=== PATIENT | male | born 1990 | race Caucasian/White ===

== ENCOUNTER 2020-04-22 11:26 | Outpatient (REF) | payer MEDICAID, SELFPAY ==
[2020-04-22 13:31] LABS: MANUAL DIFF FLAG NO
[2020-04-22 13:35] LABS: Basophils Percent Auto 0.5 % (0-2); Eosinophils Absolute Auto 0.3 X10*3/uL (0.0-0.4); Eosinophils Percent Auto 6.1 % (0-4); Hematocrit 46.5 % (42-52); Hemoglobin 15.1 g/dl (14.0-18.0); Imm Gran Abs Auto 0.02 X10*3/uL (0.00-0.03); Imm Gran Pct Auto 0.4 % (0.0-0.4); Lymphocytes Absolute Auto 1.8 X10*3/uL (1.2-4.9); Lymphocytes Percent Auto 32.8 % (20-40); Mean Corpuscular HGB Conc 32.5 g/dl (31.0-36.0); Mean Corpuscular Hemoglobin 30.2 pg (27.0-33.0); Mean Platelet Volume 9.9 fL (9.4-12.4); Monocytes Absolute Auto 0.4 X10*3/uL (0.1-1.2); Monocytes Percent Auto 7.9 % (2-11); Neutrophils Absolute Auto 2.9 X10*3/uL (2.0-8.3); Neutrophils Percent Auto 52.3 % (45-73); Platelet Count 251 X10*3/uL (160-400); Red Cell Distribution Width 11.9 % (11.0-16.0); White Blood Count 5.6 X10*3/uL (4.8-10.8)
[2020-04-22 14:02] LABS: Alanine Aminotransferase 37 U/L (0-40); Albumin Level 4.5 g/dL (3.5-5.0); Alkaline Phosphatase 44 U/L (39-117); Anion Gap 12 (12-20); Aspartate Amino Transferase 21 U/L (5-37); Bilirubin Total 0.4 mg/dL (0.0-1.0); Blood Urea Nitrogen 12 mg/dL (9-16); Calcium 9.1 mg/dL (8.4-10.2); Carbon Dioxide 29 mmol/L (22-29); Chloride 105 mmol/L (96-108); Cholesterol 184 mg/dL; Estimated Glomerular Filt Rate > 60; Glucose Random 85 mg/dL (60-115); HDL Cholesterol 56 mg/dL; LDL Cholesterol Calculated 115 mg/dl; Potassium 4.5 mmol/l (3.3-5.1); Sodium 141 mmol/L (135-145); Total Protein 6.8 g/dL (6.5-8.0); Triglycerides 68 mg/dL
== END 2020-04-22 11:27 | disposition home or self-care (01) ==
LOC: HO.LAB 11:26
PROVIDERS: PCP Internal Medicine; Visit Provider Internal Medicine
DX: Z00.00 Encounter for general adult medical examination without abnormal findings (principal); Z13.220 Encounter for screening for lipoid disorders
CPT/HCPCS: 36415; 80053; 80061; 85025

== ENCOUNTER 2020-05-13 11:51 | Day surgery (SDC) | payer MEDICAID, SELFPAY ==
[2020-05-07 11:08] VITALS: BMI 23.7
--- NOTE | 2020-05-10 08:51 | P.CONAN_ITS ---
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 Lab test negative for COVID-19 virus Vasovagal episode Surgical History Surgical History (Updated 05/07/20 @ 11:22 by Tara Marie) History of esophagogastroduodenoscopy (EGD) Hx of wisdom tooth extraction Social History Social History (Updated 05/07/20 @ 11:23 by Tara Marie) Alcohol intake: never Smoking Status: Never smoker Meds Allergies Allergy/AdvReac Type Severity Reaction Status Date / Time No Known Allergies Allergy Unverified 12/28/19 16:42 Home Medications Medication Instructions Recorded Confirmed Type omeprazole 20 mg PO DAILY 05/07/20 05/07/20 History Exam Exam Date and Time: May 10, 2020 0851 Height,Weight and Vital Signs: Height 6 ft Weight 79.379 kg Assessment and Plan Assessment Anesthesia Assessment: Chart Reviewed Documented by User: Marlin Forte 05/17/20 07:51 [facility] Past Medical History Medical History (Updated 05/13/20 @ 12:48 by Marlin Forte) GERD (gastroesophageal reflux disease) Hiatal hernia 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 Lab test negative for COVID-19 virus Vasovagal episode Family History Family history of problems with anesthesia: No Surgical History Surgical History (Updated 05/07/20 @ 11:22 by Tara Marie) History of esophagogastroduodenoscopy (EGD) Hx of wisdom tooth extraction History of Problems with Anesthesia: No Social History Social History (Updated 05/07/20 @ 11:23 by Tara Marie) Alcohol intake: never Smoking Status: Never smoker Meds Allergies Allergy/AdvReac Type Severity Reaction Status Date / Time No Known Allergies Allergy Unverified 12/28/19 16:42 Home Medications Medication Instructions Recorded Confirmed Type omeprazole 20 mg PO DAILY 05/07/20 05/07/20 History Exam Height,Weight and Vital Signs: T 98.4 HR79 RR18 BP116/82 sP02 100%(RA) Pertinent Lab Results Pertinent Lab Results: Lab Results 05/13/20 Range/Units 12:35 POC Glucose 94 (60-115) mg/dL Airway Mallampati Class: II TM Dist: >3cm Neck ROM: Full Heart: RRR Lungs: CTAB Assessment and Plan Assessment Anesthesia Assessment: Anesthesia Plan Discussed and Chart Reviewed Final Anesthetic Review NPO: Yes ASA Class: II Final Preanesthetic Review: No Changes in Pt Med Stat, Meds/Allgs Chart Reviewed, Consent Obtained/Reviewed and Anes Risks/Benef Reviewed Patient Risk: Low Procedure Risk: Low Assessment/Block/Sedation in SS: Assess/Block/Sedation-SS Anesthetic Plan Anesthetic Plan: MAC: Disposition: Standard PACU
[2020-05-13 12:16] VITALS: BP 116/82; PULSE 79; RESP 18; TEMP 36.9; O2SAT 100
[2020-05-13] MEDS: Lactated Ringers 1,000 ML 100 ML IVCONT (12:31)
--- NOTE | 2020-05-13 12:36 | PC.NURSE ---
PATIENT STATED FEELING DIZZY, LIGHTHEADED AND FEELING LIKE HE COULD PASS OUT. PT LAID FLAT, COOL CLOTH TO HEAD. BP DOWN TO 64/24, HR 43. POC 96 AT 1236. PATIENT STATED SYMPTOMS AFTER IV PLACED. FLUIDS RUNNING. BP 72/35, HR 55. PATIENT'S HEAD DOWN TRENDELENBERG. ANESTHIA NOTIFIED. PT'S BP COMING BACK UP. PATIENT STATES NO MORE LIGHTHEADEDNESS/DIZZINESS. PT REPORTS SOME TINGLING TO RIGHT FINGERS. TIME: 1239 BP 84/37, HR 72 TIME: 1241 BP 96/57, HR 75 TIME: 1244, BP 101/67 HR 75 PT AWAKE, ALERT/ORIENTED X'S 3.
[2020-05-13 12:38] LABS: Glucose, Whole Blood 94 mg/dL (60-115)
--- NOTE | 2020-05-13 12:41 | HO.ANESPROP2 ---
COUNT INCLUDES THE [facility] Past Medical History Medical History (Updated 05/13/20 @ 12:48 by Marlin Forte) GERD (gastroesophageal reflux disease) Hiatal hernia 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 Lab test negative for COVID-19 virus Vasovagal episode Family History Family history of problems with anesthesia: No Surgical History Surgical History (Updated 05/07/20 @ 11:22 by Tara Marie) History of esophagogastroduodenoscopy (EGD) Hx of wisdom tooth extraction History of Problems with Anesthesia: No Social History Social History (Updated 05/07/20 @ 11:23 by Tara Marie) Alcohol intake: never Smoking Status: Never smoker Use of substances other than those prescribed or required for medical reasons: No Have you been hit, kicked, punched, or otherwise hurt by someone within the past year? If so, by whom?: No Advance Directives Information Provided: No Recently lost weight without trying: No Meds Allergies Allergy/AdvReac Type Severity Reaction Status Date / Time No Known Allergies Allergy Unverified 12/28/19 16:42 Home Medications Medication Instructions Recorded Confirmed Type omeprazole 20 mg PO DAILY 05/07/20 05/07/20 History Exam Exam Date and Time: May 13, 2020 1241 Height,Weight and Vital Signs: Height 6 ft Weight 79.379 kg Last Vital Signs Temp 98.4 F 05/13/20 12:16 Pulse 79 05/13/20 12:16 Resp 18 05/13/20 12:16 BP 116/82 05/13/20 12:16 Pulse Ox 100 05/13/20 12:16 Pertinent Lab Results Pertinent Lab Results: Laboratory Tests 05/13/20 12:35 POC Glucose 94 Airway Mallampati Class: II TM Dist: >3cm Neck ROM: Full Loose/Missing/Broken Teeth: No Heart: RRR Lungs: CTAB Assessment and Plan Assessment Anesthesia Assessment: Anesthesia Plan Discussed and Chart Reviewed Final Anesthetic Review NPO: Yes ASA Class: II Final Preanesthetic Review: No Changes in Pt Med Stat, Meds/Allgs Chart Reviewed, Consent Obtained/Reviewed and Anes Risks/Benef Reviewed Patient Risk: Low Procedure Risk: Low Assessment/Block/Sedation in SS: Assess/Block/Sedation-SS Anesthetic Plan Anesthetic Plan: MAC: Disposition: Standard PACU
[2020-05-13 14:24] VITALS: BP 102/52; PULSE 77; RESP 16; TEMP 36.4; O2SAT 97
--- NOTE | 2020-05-13 14:29 | PM.OP ---
Brief Operative Note Date of Service: 05/13/20 Pre-op diagnosis: GERD, Barcenas's esophagus Post-op diagnosis: other (Same, Hiatal hernia) Procedure: EGD with biopsies Surgeon: Cain Neff Anesthesia: MAC Estimated blood loss (mL): 3.0 Pathology: other (A. EG Junction at 35cm) Condition: stable Disposition: PACU
[2020-05-13 14:40] VITALS: BP 111/72; PULSE 72; RESP 16; TEMP 36.4; O2SAT 97
--- NOTE | 2020-05-13 14:50 | HO.POSTANES ---
Post Anesthesia Evaluation Post Anesthesia Evaluation Vital Signs: Vital Signs Temp Pulse Resp BP Pulse Ox 05/13/20 14:40 97.6 F 72 16 111/72 97 05/13/20 14:24 97.6 F 77 16 102/52 L 97 05/13/20 12:16 98.4 F 79 18 116/82 100 Anesthesia: Monitored Mental Status: Awake Pain Control: Satisfactory Nausea/Vomiting: None Hydration: Adequate Anesthesia-Related Issues: No Anes. Related Issues
--- NOTE | 2020-05-13 15:19 | OP_ITS ---
SURGEON: Cain Neff MD INDICATIONS: The patient presents for evaluation of gastroesophageal reflux and Barcenas's esophagus. Full consent has been obtained from him for this, including risks of bleeding and perforation. PREOPERATIVE DIAGNOSIS: POSTOPERATIVE DIAGNOSIS: PROCEDURE PERFORMED: Esophagogastroduodenoscopy with biopsies. ESTIMATED BLOOD LOSS: COMPLICATIONS: ANESTHESIA: Monitored anesthesia care. ASSISTANTS: SPECIMENS: PREOPERATIVE DIAGNOSES: Barcenas's esophagus and gastroesophageal reflux. POSTOPERATIVE DIAGNOSES: Barcenas's esophagus, gastroesophageal reflux, hiatal hernia. DESCRIPTION OF PROCEDURE: The patient was placed in the left lateral decubitus position. The Olympus video gastroscope was passed in the posterior oropharynx and upper esophagus under direct vision. The scope was passed slowly into the distal esophagus. The gastroesophageal junction appeared at 35 cm. There was some very slight irregularity but no evidence of esophagitis. There were no lesions. The scope entered into the stomach, there was what appeared to be a moderate-sized hiatal hernia with some looping of the scope in the proximal stomach until I was able to reach the pylorus. Once at the pylorus, I cannulated the duodenum to the descending portion. The duodenum including the bulb appeared normal without mass or ulceration. The scope was withdrawn back into the stomach. The gastric antrum and body appeared normal, good peristalsis. The scope was retroflexed visualizing the proximal stomach carefully, which appeared normal, without any sign of mass or ulceration. The scope was straightened and withdrawn back into the proximal stomach. I did feel I was visualizing what appeared to be a moderate-sized hiatal hernia. The scope was withdrawn back to the esophagus. Multiple biopsies were obtained at the EG junction at 35 cm. Proximal to this, the esophageal mucosa appeared normal. The scope was withdrawn from the patient. He tolerated the procedure well and was returned to recovery area in stable condition. IMPRESSION: 1. Gastroesophageal reflux, history of Barcenas's esophagus. 2. Hiatal hernia. PLAN: The results of biopsy will be checked. I would recommend a repeat upper endoscopy in 3 years for further surveillance. He was advised to continue his daily omeprazole for symptomatic relief of his reflux. In regard to the finding of the hiatal hernia, I will most likely order a followup barium swallow compared to the original one from years ago to be sure the hiatal hernia is not enlarged nor changed in any manner that could require surgery. This has been discussed with his mother. MD HOMA Douglas/ESTER / [phone]
== END 2020-05-13 15:02 | disposition home or self-care (01) ==
PROVIDERS: PCP Internal Medicine; Visit Provider Internal Medicine
PROC: 0DJ08ZZ Inspection of Upper Intestinal Tract, Via Natural or Artificial Opening Endoscopic (ICD-10-PCS; CPT 43235; principal; 2020-05-13 13:20)
DX: K22.70 Barrett's esophagus without dysplasia (principal); K21.9 Gastro-esophageal reflux disease without esophagitis; K44.9 Diaphragmatic hernia without obstruction or gangrene; Z79.899 Other long term (current) drug therapy
CPT/HCPCS: 43239; 82947; 88305; J0461

== ENCOUNTER 2020-05-24 08:32 | Outpatient (REF) | payer MEDICAID, SELFPAY ==
--- NOTE | ~2020-05-24 | FL_ITS ---
PROCEDURE: FL BARIUM SWALLOW See upper GI report from the same day.
--- NOTE | ~2020-05-24 | FL_ITS ---
EXAMINATION: XR GI SERIES CLINICAL INFORMATION: Gastroesophageal reflux disease. Dysphagia. Hiatal hernia. COMPARISON: None TECHNIQUE: Barium swallow and upper GI were performed using thin and thick barium and effervescent granules. A barium tablet was also administered. FINDINGS: The swallowing mechanism is normal. No aspiration or penetration is seen. There is slight mucosal irregularity of the distal thoracic esophagus questionable for mild esophagitis. No gastroesophageal reflux is seen. No esophageal hernia or stricture is seen. The stomach and duodenum are normal appearing. No fold thickening, mass, ulcer, or stricture is seen. FLUOROSCOPY TIME: 2.2 minutes DOSE AREA PRODUCT: 15 Gy-cm2 56 saved fluoroscopic images. FL/FL upper GI series IMPRESSION: Mild gastroesophageal reflux. Slight mucosal irregularity of the distal thoracic esophagus questionable for esophagitis.
== END 2020-05-24 08:33 | disposition home or self-care (01) ==
LOC: HO.XRAY 08:32
PROVIDERS: Visit Provider Internal Medicine
DX: K22.70 Barrett's esophagus without dysplasia (principal); K21.9 Gastro-esophageal reflux disease without esophagitis; K44.9 Diaphragmatic hernia without obstruction or gangrene
CPT/HCPCS: 74220; 74240; 74246

== ENCOUNTER 2021-06-21 10:10 | Outpatient (REF) | payer MEDICAID, SELFPAY ==
[2021-06-21 10:23] LABS: MANUAL DIFF FLAG NO
[2021-06-21 10:58] LABS: Basophils Percent Auto 0.3 % (0-2); Eosinophils Absolute Auto 0.2 X10*3/uL (0.0-0.4); Hematocrit 45.7 % (42.0-52.0); Hemoglobin 14.9 g/dl (14.0-18.0); Imm Gran Abs Auto 0.02 X10*3/uL (0.00-0.03); Imm Gran Pct Auto 0.3 % (0.0-0.4); Lymphocytes Absolute Auto 2.2 X10*3/uL (1.2-4.9); Lymphocytes Percent Auto 37.1 % (20-40); Mean Corpuscular HGB Conc 32.6 g/dl (31.0-36.0); Mean Corpuscular Hemoglobin 29.8 pg (27.0-33.0); Mean Corpuscular Volume 91.4 fL (80.0-98.0); Mean Platelet Volume 9.7 fL (9.4-12.4); Monocytes Absolute Auto 0.6 X10*3/uL (0.1-1.2); Monocytes Percent Auto 10.2 % (2-11); Neutrophils Absolute Auto 2.8 x10*3/uL (2.0-8.3); Neutrophils Percent Auto 48.1 % (45-73); Platelet Count 233 X10*3/uL (160-400); White Blood Count 5.8 X10*3/uL (4.8-10.8)
[2021-06-21 11:34] LABS: Alanine Aminotransferase 28 U/L (0-40); Albumin Level 4.6 g/dL (3.5-5.0); Alkaline Phosphatase 49 U/L (39-117); Anion Gap 10 (12-20); Aspartate Amino Transferase 21 U/L (5-37); Bilirubin Total 0.9 mg/dL (0.0-1.0); Blood Urea Nitrogen 11 mg/dL (9-16); Carbon Dioxide 31 mmol/L (22-29); Chloride 102 mmol/L (96-108); Cholesterol 187 mg/dL; Estimated Glomerular Filt Rate > 60; Glucose Random 86 mg/dL (60-115); HDL Cholesterol 50 mg/dL; LDL Cholesterol Calculated 124 mg/dl; Potassium 4.2 mmol/L (3.3-5.1); Sodium 139 mmol/L (135-145); Total Protein 7.2 g/dL (6.5-8.0); Triglycerides 68 mg/dL
[2021-06-21 11:56] LABS: Thyroid Stimulating Hormone 2.39 uIU/mL (0.32-4.0)
[2021-06-21 12:36] LABS: Vitamin D 25-OH Total 47.9 ng/mL (>30)
== END 2021-06-21 10:11 | disposition home or self-care (01) ==
LOC: HO.LAB 10:10
PROVIDERS: PCP Internal Medicine; Visit Provider Internal Medicine
DX: Z00.00 Encounter for general adult medical examination without abnormal findings (principal)
CPT/HCPCS: 36415; 80053; 80061; 82306; 84443; 85025

== ENCOUNTER 2021-09-23 15:16 | Outpatient (REF) | payer MEDICAID, SELFPAY ==
--- NOTE | ~2021-09-23 | CT_ITS ---
EXAMINATION: CT INTERNAL AUDITORY CANALS WITHOUT CONTRAST CLINICAL INFORMATION: Pain and hearing loss left ear. COMPARISON: No relevant prior imaging. TECHNIQUE: Rivet Hammer Machine Operator images were obtained. CT imaging of the temporal bones was performed without contrast. Data was reformatted into multiplanar images at the acquisition workstation. This CT examination was performed using dose optimization techniques as appropriate, including one or more of the following: Automated exposure control, iterative reconstruction, and adjustment of technique factors (mA and/or kVp) according to patient size (this includes techniques or standardized protocols for targeted exams where dose is matched to indication/reason for exam). DLP: 181 mGy-cm. FINDINGS: Left temporal bone: The external auditory canal is patent and there is no abnormal thickening of the tympanic membrane. The ossicular chain is intact. No mastoid middle ear effusion. Labyrinthine structures are morphologically normal and the otic capsule is intact. The internal auditory canal is unremarkable. Right temporal bone: The external auditory canal is patent and there is no abnormal thickening of the tympanic membrane. The ossicular chain is intact. No mastoid middle ear effusion. Labyrinthine structures are morphologically normal and the otic capsule is intact. The internal auditory canal is unremarkable. Other: Limited visualization of the intracranial anatomy reveals no abnormal finding. Specifically there is no of intracranial mass effect or hydrocephalus. There are retention cysts within both maxillary sinuses. A prominent leftward projecting nasal septal spur is noted. CT/CT internal auditory canals BI IMPRESSION: Unremarkable CT scan of the temporal bones in that there is no discrete anatomic finding to provide an explanation for this patient's left-sided hearing loss and pain.
== END 2021-09-23 15:17 | disposition home or self-care (01) ==
LOC: HO.CT 15:16
PROVIDERS: PCP Internal Medicine; Visit Provider Internal Medicine
DX: H92.02 Otalgia, left ear (principal)
CPT/HCPCS: 70480

== ENCOUNTER 2022-03-26 22:04 | Emergency (ER) | payer MEDICAID, SELFPAY ==
--- NOTE | ~2022-03-26 | US_ITS ---
EXAMINATION: US ABDOMEN LIMITED CLINICAL INFORMATION: Right upper quadrant pain.. COMPARISON: 06/09/2012 TECHNIQUE: A limited sonographic assessment of the right upper quadrant viscera. FINDINGS: GALLBLADDER: Normal. The gallbladder is physiologically distended without evidence of stones, sludge, polyps, wall thickening or pericholecystic fluid. Wall thickness of 0.2 cm. COMMON BILE DUCT: Normal in caliber measuring 0.3 cm in diameter. FREE FLUID: None. US/US abdomen limited IMPRESSION: Normal gallbladder. No evidence of cholelithiasis or cholecystitis.
[2022-03-26 22:06] VITALS: BP 121/78; PULSE 109; RESP 18; TEMP 37.6; O2SAT 99; BMI 23.7
[2022-03-26 22:21] LABS: MANUAL DIFF FLAG NO
[2022-03-26 22:23] LABS: Basophils Percent Auto 0.2 % (0-2); Eosinophils Percent Auto 0.5 % (0-4); Hematocrit 44.4 % (42.0-52.0); Hemoglobin 15.1 g/dl (14.0-18.0); Imm Gran Abs Auto 0.03 X10*3/uL (0.00-0.03); Imm Gran Pct Auto 0.4 % (0.0-0.4); Lymphocytes Absolute Auto 0.7 X10*3/uL (1.2-4.9); Lymphocytes Percent Auto 8.3 % (20-40); Mean Corpuscular Volume 91.2 fL (80.0-98.0); Mean Platelet Volume 9.2 fL (9.4-12.4); Monocytes Absolute Auto 0.8 X10*3/uL (0.1-1.2); Monocytes Percent Auto 9.1 % (2-11); Neutrophils Absolute Auto 6.8 x10*3/uL (2.0-8.3); Neutrophils Percent Auto 81.5 % (45-73); Platelet Count 233 X10*3/uL (160-400); Red Blood Count 4.87 X10*6/uL (4.60-5.80); Red Cell Distribution Width 11.9 % (11.0-16.0); White Blood Count 8.3 X10*3/uL (4.8-10.8)
[2022-03-26 22:36] VITALS: BP 126/82; PULSE 108; RESP 18; TEMP 37.7; O2SAT 99
[2022-03-26 22:49] LABS: Alanine Aminotransferase 19 U/L (0-40); Albumin Level 4.7 g/dL (3.5-5.0); Alkaline Phosphatase 50 U/L (39-117); Anion Gap 13 (12-20); Aspartate Amino Transferase 20 U/L (5-37); Bilirubin Direct 0.3 mg/dL (0.0-0.5); Blood Urea Nitrogen 10 mg/dL (9-16); Calcium 9.4 mg/dL (8.4-10.2); Carbon Dioxide 26 mmol/L (22-29); Chloride 101 mmol/L (96-108); Creatinine Clr Calc Pharmacy 129.8; Estimated Glomerular Filt Rate > 60; Glucose Random 102 mg/dL (60-115); Potassium 3.6 mmol/L (3.3-5.1); Sodium 136 mmol/L (135-145)
[2022-03-26 22:56] LABS: Lipase 42 U/L (8-78)
[2022-03-26 23:18] LABS: COVID-19 Test Negative (Negative); IDNOW Serial# 16C4AD1C
[2022-03-26 23:21] LABS: IDNOW Serial# BCCEAD1C; Influenza A Negative (Negative); Influenza B2 Negative (Negative)
--- NOTE | 2022-03-26 23:50 | ED_ITS ---
HPI - Abdominal Pain General Chief Complaint: Abdominal Pain Stated Complaint: abd pain,fever Time Seen by Provider: 03/26/22 22:33 Source: patient Mode of arrival: ambulatory Limitations: no limitations History of Present Illness HPI narrative: Patient comes to the emergency room complaining of intermittent abdominal pain for several months. Patient states that the pain is usually epigastric and radiates towards the back. Patient has been seen by medical insurance coding specialist Dr. Neff. The patient states that he has an ultrasound pending from an outpatient basis. Also, patient states that he was told by his medical insurance coding specialist that if he experiences any abdominal pain with fever for nausea to return to the emerge ncy room. Patient denies nausea vomiting or diarrhea, states he has had a temperature of 99 degrees at home, decided to come to the emergency room. Related Data Home Medications Medication Instructions Recorded Confirmed omeprazole 20 mg tablet,delayed 20 mg PO DAILY 05/07/20 05/07/20 release Allergies Allergy/AdvReac Type Severity Reaction Status Date / Time No Known Allergies Allergy Unverified 12/28/19 16:42 Review of Systems Review of Systems Constitutional : No Weight loss, complaining of low-grade fever, complaining of Chills, No Night Sweats, No Fatigue, No Malaise ENT/Mouth : No Hearing loss, No Ear Pain, No Nasal Congestion, No Sinus Pain, No Hoarseness, No sore throat, No Rhinorrhea, No Swallowing Difficulty Eyes: No Eye Pain, No Swelling, No Redness, No Foreign Body, No Discharge, No Vision Changes Cardiovascular : No Chest Pain, No SOB, No Dyspnea on Exertion, No Orthopnea, No Edema, No Palpitations Respiratory : No Cough, No Sputum, No Wheezing, No Smoke Exposure, No Dyspnea Gastrointestinal : Complaining of epigastric pain radiating towards the back intermittently, no nausea vomiting diarrhea Genitourinary : no irregular bleeding, No Dysuria, No Urinary Frequency, No Hematuria, No Urinary Incontinence, No Urgency, No Flank Pain, No Urinary Flow Changes, No Hesitancy Musculoskeletal : No joint pain, No Myalgias, No Joint Swelling Skin : No Skin Lesions, No rash Neuro : No Weakness, No Numbness, No Paresthesias, No Loss of Consciousness, No Dizziness, No Headache Psych : No Anxiety/Panic, No Depression, No SI/HI/AH/VH, No Social Issues, Heme/Lymph: No Bruising, No Bleeding,No Lymphadenopathy Endocrine : No Polyuria, No Polydipsia, No Temperature Intolerance ON LICENSE OF [facility] Past Medical History Medical History GERD (gastroesophageal reflux disease) Hiatal hernia 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 Lab test negative for COVID-19 virus Vasovagal episode Surgical History History of esophagogastroduodenoscopy (EGD) Hx of wisdom tooth extraction Social History Social History (Updated 05/07/20 @ 11:23 by Tara Marie RN) Alcohol intake: never Advance Directives: No Advance Directives Information Provided: No Physical Exam ED Vital Signs: Vital Signs - 24 hr 03/26/22 22:06 03/26/22 22:36 Temperature 99.6 F 99.9 F Pulse Rate 109 H 108 H Respiratory Rate 18 18 Blood Pressure 121/78 126/82 Pulse Oximetry 99 99 Oxygen Delivery Method Room Air Room Air BMI result Body Mass Index 23.7 Const Other: Appearance: Alert. Oriented X3. No acute distress. Well-appearing Eyes: Pupils equal, round and reactive to light. ENT: Pharynx normal. Neck: Normal inspection. Neck supple. No lymph nodes noted. No crepitus CVS: Normal heart rate and rhythm. Pulses normal. Normal S1 and S2 Respiratory: No respiratory distress. Breath sounds normal. No Wheezing. No rales Abdomen: Soft , mild discomfort to palpation in the epigastric area, negative Atkins sign, no distension, no guarding, no rebound or peritoneal signs. Skin: Skin warm and dry. Normal skin color. Normal skin turgor. Extremities: No lower extremity edema. No Lacerations. No Rash Neuro: Oriented X 3. No motor deficit. No sensory deficit. Moving all extremities. No slurred speech. CN 2 through 12 grossly intact Psych: calm, cooperative, normal affect Course Course Course Narrative: White blood cell count within normal limits, normal chemistry, LFTs normal lipase normal. We will go ahead and order an ultrasound since gallstones have been suspected in the past. At this time, patient declined any pain medication. Patient's ultrasound is negative for gallstones. Patient has not required any pain medication, this time patient is asymptomatic. Patient will follow-up with Dr. Neff. Medical Decision Making Differential Diagnosis Differential Diagnoses: The differential diagnosis associated with the presentation includes (Cholecystitis, pancreatitis, functional abdominal pain) Lab Data MDM Lab Attestation statement: I reviewed the patient's lab results. Result Diagrams: 03/26/22 22:18 03/26/22 22:18 Labs: Lab Results 03/26/22 03/26/22 03/26/22 Range/Units 22:18 22:18 22:53 WBC 8.3 (4.8-10.8) X10*3/uL RBC 4.87 (4.60-5.80) X10*6/uL Hgb 15.1 (14.0-18.0) g/dl Hct 44.4 (42.0-52.0) % MCV 91.2 (80.0-98.0) fL MCH 31.0 (27.0-33.0) pg MCHC 34.0 (31.0-36.0) g/dl RDW 11.9 (11.0-16.0) % Plt Count 233 (160-400) X10*3/uL MPV 9.2 L (9.4-12.4) fL Immature Gran % (Auto) 0.4 (0.0-0.4) % Neut % (Auto) 81.5 H (45-73) % Lymph % (Auto) 8.3 L (20-40) % [place] % (Auto) 9.1 (2-11) % Eos % (Auto) 0.5 (0-4) % Baso % (Auto) 0.2 (0-2) % Lymph # (Auto) 0.7 L (1.2-4.9) X10*3/uL [place] # (Auto) 0.8 (0.1-1.2) X10*3/uL Eos # (Auto) 0.0 (0.0-0.4) X10*3/uL Baso # (Auto) 0.0 (0.0-0.2) X10*3/uL Abs Immat Gran (auto) 0.03 (0.00-0.03) X10*3/uL Absolute Neuts (auto) 6.8 (2.0-8.3) x10*3/uL Absolute Nucleated RBC 0.000 (0.0-0.012) X10*3/uL Nucleated RBC % (auto) 0.0 (0.0-0.2) /100WBC Sodium 136 (135-145) mmol/L Potassium 3.6 (3.3-5.1) mmol/L Chloride 101 (96-108) mmol/L Carbon Dioxide 26 (22-29) mmol/L Anion Gap 13 (12-20) BUN 10 (9-16) mg/dL Creatinine 0.88 (0.5-1.4) mg/dL Estim Creat Clear Calc 129.8 Estimated GFR > 60 Random Glucose 102 (60-115) mg/dL Calcium 9.4 (8.4-10.2) mg/dL Direct Bilirubin 0.3 (0.0-0.5) mg/dL AST 20 (5-37) U/L ALT 19 (0-40) U/L Alkaline Phosphatase 50 (39-117) U/L Total Protein 7.0 (6.5-8.0) g/dL Albumin 4.7 (3.5-5.0) g/dL Lipase 42 (8-78) U/L COVID-19 ([facility]) Negative (Negative) COVID-19 Clin Com See Note Influenza Type A ([facility]) (Negative) Influenza Type B ([facility]) (Negative) Influenza A & B Note 03/26/22 Range/Units 22:53 WBC (4.8-10.8) X10*3/uL RBC (4.60-5.80) X10*6/uL Hgb (14.0-18.0) g/dl Hct (42.0-52.0) % MCV (80.0-98.0) fL MCH (27.0-33.0) pg MCHC (31.0-36.0) g/dl RDW (11.0-16.0) % Plt Count (160-400) X10*3/uL MPV (9.4-12.4) fL Immature Gran % (Auto) (0.0-0.4) % Neut % (Auto) (45-73) % Lymph % (Auto) (20-40) % [place] % (Auto) (2-11) % Eos % (Auto) (0-4) % Baso % (Auto) (0-2) % Lymph # (Auto) (1.2-4.9) X10*3/uL [place] # (Auto) (0.1-1.2) X10*3/uL Eos # (Auto) (0.0-0.4) X10*3/uL Baso # (Auto) (0.0-0.2) X10*3/uL Abs Immat Gran (auto) (0.00-0.03) X10*3/uL Absolute Neuts (auto) (2.0-8.3) x10*3/uL Absolute Nucleated RBC (0.0-0.012) X10*3/uL Nucleated RBC % (auto) (0.0-0.2) /100WBC Sodium (135-145) mmol/L Potassium (3.3-5.1) mmol/L Chloride (96-108) mmol/L Carbon Dioxide (22-29) mmol/L Anion Gap (12-20) BUN (9-16) mg/dL Creatinine (0.5-1.4) mg/dL Estim Creat Clear Calc Estimated GFR Random Glucose (60-115) mg/dL Calcium (8.4-10.2) mg/dL Direct Bilirubin (0.0-0.5) mg/dL AST (5-37) U/L ALT (0-40) U/L Alkaline Phosphatase (39-117) U/L Total Protein (6.5-8.0) g/dL Albumin (3.5-5.0) g/dL Lipase (8-78) U/L COVID-19 ([facility]) (Negative) COVID-19 Clin Com Influenza Type A ([facility]) Negative (Negative) Influenza Type B ([facility]) Negative (Negative) Influenza A & B Note See Note Independent Interpretation I performed an independent interpretation of an: Ultrasound (My interpretation of the ultrasound is no gallstones in the gallbladder present. Ultrasound report: FINDINGS: GALLBLADDER: Normal. The gallbladder is physiologically distended without evidence of stones, sludge, polyps, wall thickening or pericholecystic fluid. Wall thickness of 0.2 cm. COMMON BI) Discharge Plan Discharge Clinical Impression: Abdominal pain Patient Disposition: Home, Self-Care Instructions: Abdominal Pain (ED) Additional Instructions: Please follow-up with your primary care physician tomorrow. If you have any worsening or new symptoms, please return to the emergency room or call 911 Prescriptions: No Action omeprazole 20 mg Tablet,Delayed Release (Dr/Ec) 20 mg PO DAILY Referrals: Cain Neff [Physician] - 1 day
[2022-03-27 01:16] LABS: Bilirubin Total 0.8 mg/dL (0.0-1.0)
== END 2022-03-27 00:34 | disposition home or self-care (01) ==
PROVIDERS: Emergency Provider Emergency Medicine; PCP Internal Medicine
DX: R10.9 Unspecified abdominal pain (principal); R50.9 Fever, unspecified; Z20.822 Contact with and (suspected) exposure to COVID-19; Z79.899 Other long term (current) drug therapy
CPT/HCPCS: 36415; 76705; 80053; 82248; 83690; 85025; 87502; 87635; 99283; 99284

== ENCOUNTER → 2022-06-15 07:15 | Outpatient (REF) | payer MEDICAID, SELFPAY ==
--- NOTE | ~2022-06-15 | NM_ITS ---
EXAMINATION: BILIARY TRACT IMAGING STUDY WITH CCK CLINICAL INFORMATION: Abdominal pain. Suspected acalculus cholecystitis.. COMPARISON: Right upper quadrant abdominal ultrasound done on 03/26/2022. TECHNIQUE: Serial gamma scintillation camera images were obtained over the abdomen for a total observation period of 60 minutes following the intravenous administration of 5 mCi Tc-99m mebrofenin. FINDINGS: There is good concentration of activity in the liver by 5 minutes post injection. Biliary activity is visualized by 8 minutes. The gallbladder is well visualized by 15 minutes. Small bowel is well visualized by 50 minutes. At 60 minutes post radiopharmaceutical injection, a 30-minute infusion of 2 micrograms Sincalide was then begun and an additional 40 minutes of images were obtained. There is good emptying of the gallbladder. By the end of the study there is good clearance of activity from the liver and visualization of diffuse small bowel activity. The calculated gallbladder ejection fraction is 78% (normal gallbladder ejection fraction is greater than 35%). NM/NM hepatobiliary w pharm IMPRESSION: Visualization of the gallbladder is evidence of a patent cystic duct and strong evidence against the diagnosis of acute cholecystitis. The common bile duct is patent. Gallbladder emptying and ejection fraction are normal. Liver function appears normal.
== END ==
LOC: HO.NUCMED 07:15
PROVIDERS: Visit Provider Internal Medicine
DX: R10.13 Epigastric pain (principal); R10.11 Right upper quadrant pain
CPT/HCPCS: 78227; A9537; J2805

== ENCOUNTER 2022-08-06 17:39 | Emergency (ER) | payer OTHER, MEDICAID, SELFPAY ==
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
[2022-08-06 18:28] VITALS: BP 118/73; PULSE 71; RESP 18; TEMP 37.1; O2SAT 100; BMI 23.7
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
[2022-08-06] MEDS: Acetaminophen 325 MG TABLET 650 MG PO (18:57)
== END 2022-08-06 21:14 | disposition home or self-care (01) ==
PROVIDERS: Emergency Provider Student in an Organized Health Care Education/Training Program; PCP Internal Medicine
DX: S13.4XXA Sprain of ligaments of cervical spine, initial encounter (principal); V43.52XA Car driver injured in collision with other type car in traffic accident, initial encounter; R51.9 Headache, unspecified; Y93.89 Activity, other specified; Y92.414 Local residential or business street as the place of occurrence of the external cause; Y99.9 Unspecified external cause status
CPT/HCPCS: 70450; 72125; 99283; 99284; J1885

== ENCOUNTER 2022-10-01 09:20 | Outpatient (REF) | payer MEDICAID, SELFPAY ==
[2022-10-01 09:32] LABS: MANUAL DIFF FLAG NO
[2022-10-01 11:04] LABS: Basophils Percent Auto 0.8 % (0-2); Eosinophils Absolute Auto 0.3 X10*3/uL (0.0-0.4); Eosinophils Percent Auto 5.5 % (0-4); Imm Gran Abs Auto 0.02 X10*3/uL (0.00-0.03); Imm Gran Pct Auto 0.4 % (0.0-0.4); Lymphocytes Absolute Auto 1.8 X10*3/uL (1.2-4.9); Lymphocytes Percent Auto 34.5 % (20-40); Mean Corpuscular HGB Conc 33.3 g/dl (31.0-36.0); Mean Corpuscular Hemoglobin 30.7 pg (27.0-33.0); Mean Platelet Volume 9.8 fL (9.4-12.4); Monocytes Absolute Auto 0.5 X10*3/uL (0.1-1.2); Neutrophils Absolute Auto 2.5 x10*3/uL (2.0-8.3); Neutrophils Percent Auto 48.8 % (45-73); Platelet Count 251 X10*3/uL (160-400); Red Blood Count 5.22 X10*6/uL (4.60-5.80); Red Cell Distribution Width 11.9 % (11.0-16.0); White Blood Count 5.1 X10*3/uL (4.8-10.8)
[2022-10-01 12:36] LABS: Vitamin D 25-OH Total 55.3 ng/mL (>30)
[2022-10-01 12:41] LABS: Anion Gap 9 (12-20)
[2022-10-01 12:46] LABS: Alanine Aminotransferase 48 U/L (0-40); Albumin Level 4.7 g/dL (3.5-5.0); Alkaline Phosphatase 48 U/L (39-117); Aspartate Amino Transferase 34 U/L (5-37); Bilirubin Total 0.9 mg/dL (0.0-1.0); Blood Urea Nitrogen 16 mg/dL (9-16); Calcium 9.1 mg/dL (8.4-10.2); Carbon Dioxide 29 mmol/L (22-29); Chloride 107 mmol/L (96-108); Cholesterol 199 mg/dL; Estimated Glomerular Filt Rate > 60; Glucose Random 71 mg/dL (60-115); HDL Cholesterol 57 mg/dL; LDL Cholesterol Calculated 131 mg/dl; Potassium 3.7 mmol/L (3.3-5.1); Sodium 141 mmol/L (135-145); Total Protein 7.6 g/dL (6.5-8.0); Triglycerides 58 mg/dL
== END 2022-10-01 09:21 | disposition home or self-care (01) ==
LOC: HO.LAB 09:20
PROVIDERS: PCP Internal Medicine; Visit Provider Internal Medicine
DX: E55.9 Vitamin D deficiency, unspecified (principal); Z82.49 Family history of ischemic heart disease and other diseases of the circulatory system
CPT/HCPCS: 36415; 80053; 80061; 82306; 85025

== ENCOUNTER 2023-01-07 11:58 | Outpatient (REF) | payer MEDICAID, SELFPAY ==
[2023-01-07 13:29] LABS: Thyroid Stimulating Hormone 1.81 uIU/mL (0.32-4.0)
[2023-01-09 05:28] LABS: Follicle Stimulating Hormone 1.2 mIU/mL (1.6-8.0); Lutenizing Hormone 3.1 mIU/mL (1.5-9.3)
[2023-01-13 00:59] LABS: Testosterone, Free 88.1 pg/mL (35.0-155.0); Testosterone, Total 534 ng/dL (250-1100)
== END 2023-01-07 11:59 | disposition home or self-care (01) ==
LOC: HO.LAB 11:58
PROVIDERS: PCP Internal Medicine; Visit Provider Internal Medicine
DX: F66 Other sexual disorders (principal)
CPT/HCPCS: 36415; 83001; 83002; 84402; 84403; 84443

== ENCOUNTER 2023-06-28 10:21 | Day surgery (SDC) | payer MEDICAID, SELFPAY ==
[2023-06-28 10:49] VITALS: BP 117/79; PULSE 91; RESP 18; TEMP 36.6; O2SAT 100
[2023-06-28] MEDS: Lactated Ringers 1,000 ML 80 ML IVCONT (10:52)
--- NOTE | 2023-06-28 11:11 | HO.ANESPROP2 ---
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 Hiatal hernia GERD (gastroesophageal reflux disease) Family History Family history of problems with anesthesia: No Surgical History Surgical History Hx of wisdom tooth extraction History of esophagogastroduodenoscopy (EGD) History of Problems with Anesthesia: No Social History Social History Alcohol intake: never Patient Tobacco Use Status: Never used Tobacco Are you DNR?: No Advance Directives: No Advance Directives Information Provided: Yes Nutrition Risks: No Nutritional Risk Meds Allergies Allergy/AdvReac Type Severity Reaction Status Date / Time No Known Allergies Allergy Verified 06/28/23 09:59 Active Medications: Current Medications Lactated Ringer's (Lr) 1,000 mls @ 80 mls/hr IVCONT .[id number] MAITE Last Admin: 06/28/23 10:52 Dose: 80 mls/hr Home Medications Medication Instructions Recorded Confirmed Last Taken Type omeprazole 20 mg tablet,delayed 20 mg PO DAILY 05/07/20 06/28/23 06/27/23 History release Exam Height,Weight and Vital Signs: Last Vital Signs Temp 97.9 F 06/28/23 10:49 Pulse 91 06/28/23 10:49 Resp 18 06/28/23 10:49 BP 117/79 06/28/23 10:49 Pulse Ox 100 06/28/23 10:49 O2 Del Method Room Air 06/28/23 10:49 Airway Mallampati Class: II TM Dist: >3cm Neck ROM: Full Loose/Missing/Broken Teeth: No Heart: rrr+s1s2 Lungs: cta b/l Assessment and Plan Assessment Anesthesia Assessment: Anesthesia Plan Discussed and Chart Reviewed Final Anesthetic Review Family History of Problems with Anesthesia: No History of Problems with Anesthesia: No NPO: Yes ASA Class: II Final Preanesthetic Review: No Changes in Pt Med Stat, Meds/Allgs Chart Reviewed, Consent Obtained/Reviewed and Anes Risks/Benef Reviewed Patient Risk: Intermediate Procedure Risk: Intermediate Assessment/Block/Sedation in SS: Assess/Block/Sedation-SS Anesthetic Plan Anesthetic Plan: MAC: Disposition: Standard PACU
[2023-06-28 11:25] VITALS: BMI 24.7
[2023-06-28 11:44] VITALS: BP 104/69; PULSE 70; RESP 17; TEMP 36.6; O2SAT 98
--- NOTE | 2023-06-28 11:51 | PM.OP ---
Brief Operative Note Date of Service: 06/28/23 Pre-op diagnosis: GERD, Barcenas's Post-op diagnosis: other (Same, Hiatal hernia) Procedure: EGD with biopsies Surgeon: Cain Neff MD Anesthesia: MAC Was an Forestry Worker used for this Procedure?: No Estimated blood loss (mL): 2.0 Pathology: other (A. EG Junction at 36cm) Condition: stable Disposition: PACU
[2023-06-28 12:01] VITALS: BP 103/62; PULSE 76; RESP 18; TEMP 36.1; O2SAT 97
--- NOTE | 2023-06-28 12:28 | OP_ITS ---
DATE OF SERVICE: 06/28/2023 SURGEON: Cain Neff MD INDICATIONS: The patient presents for evaluation of gastroesophageal reflux and Barcenas esophagus. Full consent has been obtained from him for this, including risks of bleeding and perforation. PREOPERATIVE DIAGNOSIS: Gastroesophageal reflux and Barcenas esophagus. POSTOPERATIVE DIAGNOSIS: PROCEDURE PERFORMED: Esophagogastroduodenoscopy with biopsies. ESTIMATED BLOOD LOSS: COMPLICATIONS: ANESTHESIA: Monitored anesthesia care. ASSISTANTS: SPECIMENS: POSTOPERATIVE DIAGNOSES: Gastroesophageal reflux and Barcenas esophagus, hiatal hernia. DESCRIPTION OF PROCEDURE: The patient was placed in the left lateral decubitus position. The Olympus video gastroscope was passed in the posterior oropharynx and upper esophagus under direct vision. The scope was passed slowly to the distal esophagus. The gastroesophageal junction appeared at 36 cm. This area had some small, less than 1 cm, areas of irregularity consistent with reflux and probable small areas of Barcenas mucosa. There was no evidence of any esophagitis nor any lesions. There was a small to moderate-sized hiatal hernia. The scope was advanced to the pylorus and the duodenum was cannulated to the descending portion. The duodenum including the bulb appeared normal without mass or ulceration. The scope was withdrawn back in the stomach. The gastric antrum and body appeared normal with good peristalsis. The scope was retroflexed visualizing the proximal stomach carefully, which appeared normal, without any sign of mass or ulceration. The scope was straightened and withdrawn back to the esophagus. Multiple biopsies were obtained at the EG junction at 36 cm. Proximal to that, the esophageal mucosa appeared normal. The scope was withdrawn from the patient. He tolerated the procedure well and was returned to the recovery area in stable condition. IMPRESSION: 1. Hiatal hernia. 2. Gastroesophageal reflux. 3. History of Barcenas esophagus. PLAN: The results of the biopsy will be checked. Assuming there is no dysplasia, I would recommend a repeat upper endoscopy in 3 years. He will continue his daily omeprazole as he reports that is working well for his symptomatic relief of reflux. He will see me otherwise on a p.r.n. basis. MD HOMA Douglas/ESTER / [phone]
== END 2023-06-28 12:15 | disposition home or self-care (01) ==
PROVIDERS: PCP Internal Medicine; Visit Provider Internal Medicine
PROC: 0DJ08ZZ Inspection of Upper Intestinal Tract, Via Natural or Artificial Opening Endoscopic (ICD-10-PCS; CPT 43235; principal; 2023-06-28 12:20)
DX: K22.70 Barrett's esophagus without dysplasia (principal); K20.90 Esophagitis, unspecified without bleeding; K44.9 Diaphragmatic hernia without obstruction or gangrene; K21.9 Gastro-esophageal reflux disease without esophagitis
CPT/HCPCS: 43239; 88305; J2405; J2704; J3010

== ENCOUNTER 2024-07-05 09:13 | Outpatient (REF) | payer MEDICAID, SELFPAY ==
[2024-07-05 09:43] LABS: MANUAL DIFF FLAG NO
[2024-07-05 10:47] LABS: Basophils Percent Auto 0.7 % (0-2); Eosinophils Absolute Auto 0.3 X10*3/uL (0.0-0.4); Eosinophils Percent Auto 4.7 % (0-4); Hematocrit 46.9 % (42.0-52.0); Hemoglobin 15.5 g/dl (14.0-18.0); Imm Gran Abs Auto 0.03 X10*3/uL (0.00-0.03); Imm Gran Pct Auto 0.5 % (0.0-0.4); Lymphocytes Absolute Auto 2.1 X10*3/uL (1.2-4.9); Lymphocytes Percent Auto 36.3 % (20-40); Mean Corpuscular Hemoglobin 30.1 pg (27.0-33.0); Mean Corpuscular Volume 91.1 fL (80.0-98.0); Mean Platelet Volume 9.6 fL (9.4-12.4); Monocytes Absolute Auto 0.6 X10*3/uL (0.1-1.2); Monocytes Percent Auto 9.8 % (2-11); Neutrophils Absolute Auto 2.7 x10*3/uL (2.0-8.3); Platelet Count 238 X10*3/uL (160-400); Red Blood Count 5.15 X10*6/uL (4.60-5.80); Red Cell Distribution Width 12.1 % (11.0-16.0); White Blood Count 5.7 X10*3/uL (4.8-10.8)
[2024-07-05 11:52] LABS: Alanine Aminotransferase 72 U/L (0-40); Albumin Level 4.4 g/dL (3.5-5.0); Alkaline Phosphatase 45 U/L (39-117); Anion Gap 10 (12-20); Aspartate Amino Transferase 44 U/L (5-37); Bilirubin Total 0.3 mg/dL (0.0-1.0); Blood Urea Nitrogen 12 mg/dL (9-16); Calcium 9.4 mg/dL (8.4-10.2); Carbon Dioxide 28 mmol/L (22-29); Chloride 107 mmol/L (96-108); Cholesterol 187 mg/dL (<200); Estimated Glomerular Filt Rate > 60; Glucose Random 89 mg/dL (60-115); HDL Cholesterol 51 mg/dL (>40); LDL Cholesterol Calculated 114 mg/dL (<100); Sodium 141 mmol/L (135-145); Total Protein 7.1 g/dL (6.5-8.0); Triglycerides 114 mg/dL (<150)
[2024-07-05 11:58] LABS: Vitamin B12 735 pg/mL (200-900)
[2024-07-05 12:09] LABS: Vitamin D 25-OH Total 57.8 ng/mL (>30)
== END 2024-07-05 09:14 | disposition home or self-care (01) ==
LOC: HO.LAB 09:13
PROVIDERS: PCP Internal Medicine; Visit Provider Internal Medicine
DX: E55.9 Vitamin D deficiency, unspecified (principal); Z85.49 Personal history of malignant neoplasm of other male genital organs
CPT/HCPCS: 36415; 80053; 80061; 82306; 82607; 85025

== ENCOUNTER 2025-03-06 16:39 | Outpatient (REF) | payer MEDICAID, SELFPAY ==
--- OUTSIDE RECORDS SUMMARY | 2025-02-14 05:45 | XMS_ITS ---
Author Organization [facility] Address [address] [place] [id number] Care Team Providers Care Sales Floor Manager Name Role Phone Александр Mccarthy Primary Care Provider Cain Farfan [phone] REASON FOR VISIT omeprazole Problems Problem Type SNOMED Code ICD Code Onset Dates Problem Status W/U Status Risk Notes Problem Elevated liver enzymes level (291499678) Elevated liver function tests (R79.89) Active confirmed Encounters Encounter Location Date Provider Diagnosis [facility] [address] [place] [phone] 02/14/2025 Cain Neff Elevated liver function tests R79.89 Assessments Encounter Date Diagnosis (ICD Code) Assessment Notes Treatment Notes Treatment Clinical Notes Section Notes 02/14/2025 Elevated liver function tests (ICD-10 - R79.89) Plan Of Treatment Pending Test Test Name Order Date LIVER PROFILE 02/14/2025 IRON + IBC (FE) 02/14/2025 Ferritin 02/14/2025 Ceruloplasmin 02/14/2025 Alpha 1 Anti-trypsin 02/14/2025 Liver Fibrosis Pnl 02/14/2025 Hepatitis B,C Profile 02/14/2025 US abdomen comp w elastography Progress Notes * JORDEN HERRERADOB: [birth year] (34 yo M)Acc No.[id number]:02/14/2025 Patient: JORDEN PISANO :1990 A ge:34 Y S ex:Male Address:[address] [place] [id number] Subjective: * Chief Complaints: * O meprazole Assessment: * Assessment: 1. E levated liver function tests - R79.89 (Primary) Plan: * Treatment: * * * Date:
[2025-03-06 17:49] LABS: Alanine Aminotransferase 41 U/L (0-40); Albumin Level 5.0 g/dL (3.5-5.0); Alkaline Phosphatase 58 U/L (39-117); Aspartate Amino Transferase 31 U/L (5-37); Iron 60 mcg/dL (45-160); Percent Iron Saturation 25 % (15-50); Total Iron Binding Capacity 244 mcg/dL (228-428); Total Protein 7.4 g/dL (6.5-8.0); Unsaturated Iron Binding 184 ug/dL
[2025-03-06 18:03] LABS: Ferritin 278 ng/mL (20-250)
--- OUTSIDE RECORDS SUMMARY | 2025-03-06 19:36 | XMS_ITS | Patient Health Record ---
[facility] Address [address] [place] [address] Care Team Providers Care Manager Quality Systems Name Role Phone Levi Horton MD Primary Care Provider Unavaila ble Black, Karis Unavailable [phone] Reason For Referral No Information Medications Medication SIG (Take, Route, Fr equency, Duration) Notes Start Date End Date Status Omeprazole 20 MG 1 capsule Orally Onc e a day; Duration: 30 day(s) Active Problems Problem Type SNOMED Code ICD Code Onset Dates Problem Status W/U Status Risk Notes Problem Bursitis (89849196) Bursitis (727.3) Active confirmed Problem Myositis (21462332) Myositis (729.1) Active confirmed Problem Pain in limb (42551219) Pain in Limb (729.5) Active confirmed Problem Plantar fasciitis (114235874) Plantar Fasciitis (728.71) Active confirmed Plan Of Treatment Pending Test Test Name Order Date X ray : Foot, left 3V 06/29/2011 X ray : Foot, right 3V 06/29/2011 Insurance Providers Payer Name Payer Address Payer Phone Subscriber Number Group Number Insured Name Patient Relationship to Insured Coverage Start Date Coverage End Date [facility] [employer] [address] [place] [address] [phone] [id number] JOSE MANUEL GONZALES Child - Insured has Financial Responsibility Medical (General) History Medical History History ICD Code hernia reflux Surgical History Surgery Date(Month/Year) wisdom teeth extraction 11/2009
--- OUTSIDE RECORDS SUMMARY | 2025-03-06 19:36 | XMS_ITS | Data Portability ---
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 activity, andgood physical condition. For additional lifestyle factors, patient reportsno tobacco use,no alcohol intake, andstopped drinking alcohol.Mental Status:For depression risk, patient reportsnever feels sad, empty, or tearful,no loss of interest in activities,no significant changes in weight,no sleep disturbances or insomnia,no agitation,no loss of energy,no feelings of worthlessness or guilt,no thoughts of suicide,no history of depression, andno history of mood disorders.Functional AbilityFor hearing, patient reportsno loss of hearing. For vision, patient reportsno vision problems.ROS as noted in the HPI Александр Mccarthy DO [address] [place], [address], [facility] 08/17/2023 11:09:12 5 text/html ROS as noted in the HPI relates that he is and going to flalong discussion re labworkdiscussed use of omeprazole Александр Mccrathy DO [address] [place], [address], [facility] 07/07/2024 15:48:19
--- OUTSIDE RECORDS SUMMARY | 2025-03-06 19:36 | XMS_ITS | Encounter Summary ---
Author Organization [facility] Address [address] [place] [address] Phone Care Team Providers Care Fiberglass Quality Technician Name Role Phone Demond Gunn MD Primary Care Provider Kiara morgan Encounter Details Date Type Department Care Team (Late st Contact Info) Description 11/26/2016 Conversion Encounter [facility] - [address] [address] Social History Tobacco Use Types Packs/Day Years Used Date Smoking Tobacco: Never Assessed Sex and Gender Information Value Date Recorded Sex Assigned at Not on file Legal Sex Male 4:41 PM EDT Gender Identity Not on file Sexual Orientation Not on file documented as of this encounter Plan of Treatment Not on file documented as of this encounter Visit Diagnoses Not on filedocumented in this encounter Care Teams Fiberglass Quality Technician Relationship Specialty Start Date End Date Demond Gunn MD PCP - General 11/20/16 07/19/22 documented as of this encounter
--- OUTSIDE RECORDS SUMMARY | 2025-03-06 19:36 | XMS_ITS | Patient Health Record ---
Author Organization [facility] Address [address] [place] [address] Care Team Providers Care Lotus Notes Administrator Name Role Phone Александр Mccarthy Primary Care Provider Cain Farfan Unavailable [phone] Allergies No Known Allergies Results Component Value Reference Range Flag Notes Liver Panel (Not yet reviewe d by provider) Interpretation: Performing Lab:[facility], [address] [place] [phone] Notes/Report: Bilirubin Total 0.4 0.0-1.0 mg/dL N Bilirubin Direct 0.1 0.0-0.5 mg/dL N Aspartate Amino Transferase 31 5-37 U/L N Alanine Aminotransferase 41 0-40 U/L H Total Protein 7.4 6.5-8.0 g/dL N Albumin Level 5.0 3.5-5.0 g/dL N Alkaline Phosphatase 58 39-117 U/L N IRON PROFILE (Not yet review ed by provider) Interpretation: Performing Lab:[facility], [address] [place] [phone] Notes/Report: Iron 60 45-160 mcg/dL N Total Iron Binding Capacity 244 228-428 mcg/dL N Percent Iron Saturation 25 15-50 % N Unsaturated Iron Binding 184 Ferritin (Not yet reviewed b y provider) Interpretation: Performing Lab:[facility], [address] [place] [phone] Notes/Report: Ferritin 278 20-250 ng/mL H Reason For Referral No Information Medications Medication SIG (Take, Route, Frequency, Duration) Notes Start Date End Date Status Multivitamin - Tablet 1 tablet Orally On ce a day; Duration: 30 day(s) Active Omeprazole 20 MG Capsule Delayed Release 1 capsule Orally Once a day; Duration: 30 days Active Immunizations Vaccine Route Administration Date Status Comme nts Influenza Unknown 12/11/2017 Administered Influenza Unknown 04/19/2020 Refused Influenza Unknown 03/18/2022 Refused Social History Social History Drugs/Alcohol: Social Info Question Answer Notes Alcohol Screen Did you have a drink containing alcohol in the past year? 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 [employer] Notes: He does not smoke nor use an y significant amounts of alcohol He does not smoke nor use an y significant amounts of alcohol He does not smoke nor use an y significant amounts of alcohol He does not smoke nor use an y significant amounts of alcohol He does not smoke nor use an y significant amounts of alcohol He does not smoke nor use an y significant amounts of alcohol He does not smoke nor use an y significant amounts of alcohol He does not smoke nor use an y significant amounts of alcohol He does not smoke nor use an y significant amounts of alcohol He does not smoke nor use an y significant amounts of alcohol Problems Problem Type SNOMED Code ICD Code Onset Dates Problem Status W/U Status Risk Notes Problem Epigastric pain (30131012) Epigastric pain (R10.13) Active confirmed Problem Barcenas's esophagus (396326049) Barcenas's esophagus without dysplasia (K22.70) Active confirmed Problem Gastroesophageal reflux disease (462930896) Gastroesophageal reflux disease (K21.9) Active confirmed Problem Gastroesophageal reflux disease with esophagitis (713207994) Gastroesophageal reflux disease with esophagitis (K21.0) Active confirmed Problem Epigastric pain (28579058) Abdominal pain, epigastric (R10.13) Active confirmed Problem Elevated liver enzymes level (254693252) Elevated liver function tests (R79.89) Active confirmed Problem Barcenas's esophagus (136937152) Barretts esophagus without dysplasia (K22.70) Active confirmed Problem Hiatal hernia (45997649) Hiatal hernia (K44.9) Active confirmed Problem Oropharyngeal dysphagia (15971889) Oropharyngeal dysphagia (R13.12) Active confirmed Problem Right upper quadrant pain (290411853) Abdominal pain, RUQ (R10.11) Active confirmed Problem Gastroesophageal reflux disease (003245265) GERD (gastroesophageal reflux disease) (K21.9) Active confirmed Problem Barcenas esophagus (859094709) Barcenas esophagus (K22.70) Active confirmed Problem Irritable bowel syndrome (64372105) Irritable bowel syndrome, unspecified type (K58.9) Active confirmed Problem Barcenas's esophagus (112701197) Barcenas''s esophagus without dysplasia (K22.70) Active confirmed Problem Globus pharyngeus (081701547) Globus pharyngeus (R09.89) Active confirmed Problem Gastroesophageal reflux disease with esophagitis (disorder) (937868697) Gastro-esophageal reflux disease with esophagitis, without bleeding (K21.00) Active confirmed Encounters Encounter Location Date Provider Diagnosis [facility] [address] [place] [address] 02/14/2025 Cain Neff Elevated liver function tests R79.89 Assessments Encounter Date Diagnosis (ICD Code) Assessment Notes Treatment Notes Treatment Clinical Notes Section Notes 02/14/2025 Elevated liver function tests (ICD-10 - R79.89) Plan Of Treatment Pending Test Test Name Order Date LIVER PROFILE 02/14/2025 IRON + IBC (FE) 02/14/2025 NUC HIDA SCAN 05/06/2022 XR BARIUM SWALLOW-ESOPHAGUS 05/15/2020 XR GI SERIES 05/15/2020 US ABD 03/18/2022 Liver Panel 03/06/2025 IRON PROFILE 03/06/2025 Ferritin 03/06/2025 Ferritin 02/14/2025 Ceruloplasmin 02/14/2025 Alpha 1 Anti-trypsin 02/14/2025 Liver Fibrosis Pnl 02/14/2025 Hepatitis B,C Profile 02/14/2025 Pathology 06/28/2023 US abdomen comp w elastography Future Test Test Name Order Date UPPER GI ENDOSCOPY 09/05/2013 UPPER GI ENDOSCOPY 11/12/2016 UPPER GI ENDOSCOPY 04/19/2020 UPPER GI ENDOSCOPY 04/13/2023 Insurance Providers Payer Name Payer Address Payer Phone Subscriber Number Group Number Insured Name Patient Relationship to Insured Coverage Start Date Coverage End Date [place] [address] [place] [id number] JORDEN HERRERA Self - patient is the insured Medical (General) History Medical History History ICD Code GERD with Barcenas's esophagu s--EGD in 06/2010 with a small HH--no H.pylori, normal duodenal bx;neg 24-hour pH and normal motility study in 04/2011--came off Omeprazole at that point--EGD in 11/2013 revealed the known small area of Barcenas's esophagus without dysplasia, and some changes of reflux Denies GA,DM,CVA,Lung disease,renal dise ase EGD in 11/2013--small HH. NIRAV D changes, small area of Barcenas's but no dysplasia; had F/U EGD in 12/2016 with similar finidings as 2013 Anxiety - Panic attacks EGD in 05/2020 revealed his h iatal hernia and small area of Barcenas's esophagus--there was no esophagitis and biopsies were negative for dysplasia--he did have a followup barium swallow which actually describes no obvious hiatal hernia according to the radiologist's report Negative gallbladder ultraso und in March 2022 and normal HIDA scan with CCK in June of 2022 Surgical History Surgery Date(Month/Year) [place] teeth extraction
--- OUTSIDE RECORDS SUMMARY | 2025-03-06 19:36 | XMS_ITS | Encounter Summary ---
Author Organization [facility] Address [address] [place] [address] Phone Care Team Providers Care Cable Television Line Technician Name Role Phone Demond Gunn MD Primary Care Provider Kiara morgan Encounter Details Date Type Department Care Team (Late st Contact Info) Description 12/22/2011 Documentation EM Family Medicine [address] [place], [place] [id number] Family Medicine, Physician [address] [place] [address] Social History Tobacco Use Types Packs/Day Years [...] on filedocumented in this encounter Care Teams Cable Television Line Technician Relationship Specialty Start Date End Date Demond Gunn MD PCP - General 11/20/16 07/19/22 documented as of this encounter
--- OUTSIDE RECORDS SUMMARY | 2025-03-06 19:36 | XMS_ITS | Clinical Summary ---
Author Organization [facility] Address [address] [place] [address] Phone Care Team Providers Care Uptwist Spinner Name Role Phone Unavailable Primary Care Provider Unavailabl e Immunizations Immunization Administration Dates Next Due DTP 01/22/1993, 0,1988,07/20,1988 Hep B, ped/adol 06/10/2000,02/06/2000,01/07/2000 Hib (PRP-T) 09/27/1989 MMR 01/07/2000,06/23/1989 Meningococcal Conj (Menactra) MCV4P 08/13/2005 OPV 01/22/1993, 0,1988,05/21 Td (adult) (MBL), 2 Lf tetan us toxoid, PF, adsorbed 06/10/2000 Tdap 02/16/2008 Varicella 07/10/2000 Family History Relation Name Status Comments Brother Alive Brother: Alive and well Cousin 1 Cousin: Autism, Asthma Cousin 2 Cousin: Autism, Asthma Father Father: ADD/ADH D, high cholesterol Mother Mother: Allergi c rhinitis Social History Tobacco Use Types Packs/Day Years Used Date Smoking Tobacco: Never Assessed Sex and Gender Information Value Date Recorded Sex Assigned at Not on file Legal Sex Male 4:41 PM EDT Gender Identity Not on file Sexual Orientation Not on file Plan of Treatment Health Maintenance Due Date Last Done Comments Varicella Vaccines (2 of 2 - 2-dose childhood series) 10/02/2000 07/10/2000 HPV Vaccines (1 - 3-dose SCDM series) 2015 DTaP,Tdap,and Td Vaccines (7 - Td or Tdap) 02/15/2018 02/16/2008, 06/10/2000, 01/22/1993, Additional history exists Influenza Vaccines (#1) 2024 COVID-19 Vaccine ( season) 2024 HIB Vaccines Completed 09/27/1989 IPV Vaccines Completed 01/22/1993, 09/10, 1988, Additional history exists MMR Vaccines Completed 01/07/2000, 06/23/1989 Hepatitis B Vaccines Completed 06/10/2000, 02/06/2000, 01/07/2000 Meningococcal Vaccine Completed 08/13/2005 Hepatitis A Vaccines Aged Out No long er eligible based on patient's age to complete this topic Men B Vaccine Aged Out No longer elig ible based on patient's age to complete this topic Pneumococcal Vaccine Aged Out No long er eligible based on patient's age to complete this topic
[2025-03-07 05:48] LABS: HBS Num1 62.39 mIU/mL (0-7.99); HBc Num1 0.08 S/CO (0.00-0.79); HBsAGNum1 0.55 S/CO (0.00-0.99); Hepatitis B Surface Antigen Negative (Negative); ~HepC Num1 0.10 S/CO (0.00-0.79); ~Hepatitis B Surface Antibody REACTIVE (Nonreactive); ~Hepatitis C Antibody Nonreactive (Nonreactive)
[2025-03-14 01:03] LABS: FIB-ALT 29 U/L (9-46); FIB-Alpha-2-Macroglobulin 146 mg/dL (106-279); FIB-Apolipoprotein A1 160 mg/dL (94-176); FIB-GGT 12 U/L (3-90); FIB-Haptoglobin 95 mg/dL (43-212); FIB-Total Bilirubin 0.4 mg/dL (0.2-1.2); Liver Fibrosis Score 0.06; Liver Fibrosis Stage F0; Nec Inflam Act Grade A0; Nec Inflam Act Score 0.10
== END 2025-03-06 16:40 | disposition home or self-care (01) ==
LOC: HO.LAB 16:39
PROVIDERS: PCP Internal Medicine; Visit Provider Internal Medicine
DX: Z11.59 Encounter for screening for other viral diseases (principal); R79.89 Other specified abnormal findings of blood chemistry
CPT/HCPCS: 36415; 80076; 81596; 82103; 82390; 82728; 83540; 86704; 86706; 86803; 87340